=== PATIENT | male | born 1985 | race Caucasian/White ===

== ENCOUNTER 2022-05-05 10:31 | Day surgery (SDC) | payer OTHER ==
[~2022-05-05] VITALS: Ht 180.3 cm; Wt 97.0 kg
[~2022-05-05 10:31] MED LIST: ACET-907 PO; CLINDAMYCIN 900 MG in IV 1 EA IV ONE
[2022-05-05] MEDS ORDERED: LR 1,000 ML IV SCH ×2 (10:40→15:10)
[2022-05-05] MEDS ORDERED: CELE1CAP4 PO (11:08)
[2022-05-05] MEDS ORDERED: propofoL 200 MG/20 ML VIAL As Ordered ONE (13:13)
[2022-05-05] MEDS ORDERED: MIDAZOLAM INJ 2MG/2ML VIAL (J2250 PER 1MG) As Ordered ONE (13:13)
[2022-05-05] MEDS ORDERED: LIDOCAINE 2% 100MG/5ML SDV (FOR ANES.) As Ordered ONE (13:13)
[2022-05-05] MEDS ORDERED: fentaNYL 100 MCG/2 ML INJECTION As Ordered ONE ×2 (13:14→15:38)
[2022-05-05] MEDS ORDERED: BUPIVACAINE HCL 0.25% 10ML VIAL As Ordered ONE (14:52)
[2022-05-05] MEDS ORDERED: BUPIVACAINE LIPOSOME/PF 1.3% 20ML VIAL (13.3MG/ML)(EXPAREL) As Ordered ONE (14:52)
[2022-05-05] MEDS ORDERED: EPINEPHrine 1MG/ML INJ 30ML MD-VIAL As Ordered ONE (14:53)
[2022-05-05] MEDS ORDERED: TRANEXAMIC ACID 100 MG/ML 10ML VIAL As Ordered ONE (15:04)
[2022-05-05] MEDS ORDERED: METOCLOPRAMIDE INJ 10MG/2ML VIAL (J2765 PER 1) IV PRN (15:10)
[2022-05-05] MEDS ORDERED: oxyCODONE 5MG TAB PO PRN (15:10)
[2022-05-05] MEDS ORDERED: ONDANSETRON 4MG 2ML VIAL IV PRN (15:10)
[2022-05-05] MEDS ORDERED: ONDANSETRON 4MG 2ML VIAL As Ordered ONE (15:12)
[2022-05-05] MEDS ORDERED: dexameTHASONE 4 MG/ML 1ML VIAL (J1100 PER 1MG) As Ordered ONE (15:12)
[2022-05-05] MEDS ORDERED: ACETAMINOPHEN 1000MG 100ML IV BTL (OFIRMEV) (J0131 PER 10MG) As Ordered ONE (15:33)
[2022-05-05] MEDS: fentaNYL 100 MCG/2 ML INJECTION IV PRN ×2 (16:56→17:06)
[2022-05-05 18:00] VITALS: BP 133/80
== END 2022-05-05 18:04 | disposition home or self-care (01) ==
LOC: M SDC 10:31
PROVIDERS: ATTEND Orthopaedic Surgery
DX: M25.461 Effusion, right knee (principal); M25.561 Pain in right knee; Z88.0 Allergy status to penicillin; Z87.891 Personal history of nicotine dependence
CPT/HCPCS: 29871; 87070; 87075; C9290; J0131; J0171; J1100; J2250; J2405; J3010